=== PATIENT | female | born 1995 | race Two or more races ===

== ENCOUNTER 2017-02-10 18:46 | Emergency (ER) | payer SELFPAY ==
[2017-02-10 19:55] LABS: URINE BILIRUBIN NEGATIVE (NEGATIVE); URINE BLOOD 1+ (NEGATIVE); URINE GLUCOSE (UA) NEGATIVE (NEGATIVE); URINE LEUKOCYTE ESTERASE TRACE (NEGATIVE); URINE NITRITE NEGATIVE (NEGATIVE); URINE PROTEIN TRACE (NEGATIVE); URINE UROBILINOGEN 1 mg/dL (0-1 mg/dl)
[2017-02-10 19:57] LABS: URINE APPEARANCE CLEAR; URINE COLOR AMBER
[2017-02-10 20:01] LABS: HCG,QUALITATIVE URINE NEGATIVE
[2017-02-10] MEDS ORDERED: DEXAMETHASONE SOD PHOS 10 MG/1 ML VIAL ONE (20:08)
[2017-02-10] MEDS ORDERED: PENICILLIN G BENZATHINE 1.2 MMU/2 ML SYRINGE IM ONE (20:09)
[2017-02-10 20:46] LABS: URINE WBC NEG /hpf
[2017-02-10 20:47] LABS: URINE BACTERIA 1+
== END 2017-02-10 20:55 | disposition home or self-care (01) ==
LOC: ED 18:46
DX: J02.9 Acute pharyngitis, unspecified (principal); R11.2 Nausea with vomiting, unspecified
CPT/HCPCS: 81025; 87086; 87880; 81001; 99283 ×2; 96372 ×2; J1100; J0561